=== PATIENT | female | born 1965 | race Two or more races ===

== ENCOUNTER 2016-12-11 18:54 | Emergency (ER) | payer OTHER ==
[~2016-12-11] VITALS: Ht 154.9 cm; Wt 74.8 kg
[2016-12-11 19:01] VITALS: BP 111/81
[2016-12-11] MEDS ORDERED: IBUPROFEN 600 MG TAB PO ONE (21:30)
== END 2016-12-11 21:57 | disposition home or self-care (01) ==
LOC: ER 19:18
DX: S16.1XXA Strain of muscle, fascia and tendon at neck level, initial encounter (principal); S46.912A Strain of unspecified muscle, fascia and tendon at shoulder and upper arm level, left arm, initial encounter; X58.XXXA Exposure to other specified factors, initial encounter; Y93.89 Activity, other specified; Y99.8 Other external cause status; Y92.69 Other specified industrial and construction area as the place of occurrence of the external cause